=== PATIENT | male | born 1955 | race Caucasian/White ===

== ENCOUNTER 2018-09-23 23:54 | Emergency (ER) | payer MEDICARE ==
[~2018-09-23] VITALS: Ht 185.4 cm; Wt 122.5 kg
[~2018-09-23 23:54] MED LIST: BACL20TA PO; CHONDROITIN PO; COMPLETE MULTIVITAMIN; DOCU50CA2 PO; DULO60CA PO; FUROPOW8; GABA1POW27 PO; GLIM4TAB42 PO; GLIP2.5T28; KLOR CON PO; LANZOPRAZOLE PO; LORATIDINE PO; MAGN400C3 PO; MORPHINE PUMP; PHEN-913 PO; SENN-46 PO; TEMA30CA PO; TRAM50TA2 PO; [UNRECOGNIZED DRUG - CODE] PO
[2018-09-24 00:45] VITALS: BP 121/75
== END 2018-09-24 01:13 | disposition home or self-care (01) ==
LOC: ER 23:56
DX: S81.811A Laceration without foreign body, right lower leg, initial encounter (principal); E11.9 Type 2 diabetes mellitus without complications; K21.9 Gastro-esophageal reflux disease without esophagitis; M19.90 Unspecified osteoarthritis, unspecified site; Z87.891 Personal history of nicotine dependence; Z88.6 Allergy status to analgesic agent; Z88.8 Allergy status to other drugs, medicaments and biological substances; Z91.02 Food additives allergy status; Z79.899 Other long term (current) drug therapy; W22.8XXA Striking against or struck by other objects, initial encounter; Y93.01 Activity, walking, marching and hiking; Y92.89 Other specified places as the place of occurrence of the external cause; Y99.8 Other external cause status

== ENCOUNTER 2021-08-16 14:18 | Emergency (ER) | payer OTHER ==
[~2021-08-16] VITALS: Ht 188 cm; Wt 113.4 kg
[~2021-08-16 14:18] MED LIST changes: -GABA1POW27 PO; +GABAPOW36 PO; +PHEN-839 PO; -PHEN-913 PO; +SENN-36 PO; -SENN-46 PO
[2021-08-16 19:20] VITALS: BP 120/86
== END 2021-08-16 20:30 | disposition home or self-care (01) ==
LOC: EDBD 14:18 → ER 14:18 → EDUNIT# 14:18 → ER 20:30
DX: S13.4XXA Sprain of ligaments of cervical spine, initial encounter (principal); R10.9 Unspecified abdominal pain; M25.512 Pain in left shoulder; M25.511 Pain in right shoulder; K21.9 Gastro-esophageal reflux disease without esophagitis; E11.9 Type 2 diabetes mellitus without complications; Z90.49 Acquired absence of other specified parts of digestive tract; Z87.891 Personal history of nicotine dependence; Z79.899 Other long term (current) drug therapy; Z88.8 Allergy status to other drugs, medicaments and biological substances; Z91.018 Allergy to other foods; V53.5XXA Driver of pick-up truck or van injured in collision with car, pick-up truck or van in traffic accident, initial encounter; Y93.89 Activity, other specified; Y92.410 Unspecified street and highway as the place of occurrence of the external cause; Y99.8 Other external cause status
CPT/HCPCS: 74176